=== PATIENT | male | born 1950 ===

== ENCOUNTER 2019-11-08 23:06 | Emergency (ER) | payer MEDICARE, MEDICAID ==
[~2019-11-08] VITALS: Ht 167.6 cm; Wt 68.2 kg
[2019-11-08] MEDS ORDERED: DOCU-275 PO (23:43)
[2019-11-08] MEDS ORDERED: BISA-151 PO (23:43)
[2019-11-08 23:57] LABS: EOSINOPHILS % (AUTO) 4.3 % (1.0-6.0); HEMATOCRIT 37.4 % (41-53); HEMOGLOBIN 12.1 g/dL (13.5-17.5); LYMPHOCYTES # (AUTO) 2.2 K/uL (1.0-4.8); LYMPHOCYTES % (AUTO) 26.7 % (22.0-44.0); MEAN CORPUSCULAR HEMOGLOBIN 27.4 pg (26.0-34.0); MEAN CORPUSCULAR HGB CONC 32.4 G/dL (31.0-37.0); MEAN CORPUSCULAR VOLUME 85 fL (80-100); MONOCYTES # (AUTO) 0.7 K/uL (0.1-1.0); MONOCYTES % (AUTO) 8.1 % (2.0-9.0); NEUTROPHILS % (AUTO) 59.9 % (40.0-70.0); PLATELET COUNT (AUTO) 333 K/uL (150-450); RED BLOOD CELL COUNT(AUTO) 4.42 MIL/uL (4.50-5.90); RED CELL DISTRIBUTION WIDTH 15.1 % (11.5-14.5)
[2019-11-09 00:12] LABS: ANION GAP 4 mmol/L (8-16); CALCIUM, TOTAL 8.7 mg/dL (8.8-10.5); CARBON DIOXIDE 31 mmol/L (22-29); CHLORIDE 99 mmol/L (98-107); CREATININE 0.92 mg/dL (0.60-1.30); GLUCOSE,RANDOM 152 mg/dL (70-110); POTASSIUM 3.6 mmol/L (3.5-5.1); SODIUM SERUM 134 mmol/L (136-145); UREA NITROGEN, BLOOD 16 mg/dL (7-18)
[2019-11-09 00:14] LABS: GLOMERULAR FILTR. RATE CALC > 60 mL/min (>60)
[2019-11-09 00:15] LABS: PROTHROMBIN TIME 10.2 SEC (9.4-11.6)
[2019-11-09 00:18] LABS: ALANINE AMINOTRANSFERASE 20 U/L (12-78); ALKALINE PHOSPHATASE 112 U/L (46-116); ASPARTATE AMINOTRANSFERASE 14 U/L (15-37); BILIRUBIN,TOTAL 0.3 mg/dL (0.1-1.0); TOTAL PROTEIN, SERUM 6.8 g/dL (6.4-8.2)
[2019-11-09] MEDS ORDERED: METO25 PO (00:19)
[2019-11-09] MEDS ORDERED: INSNOV SQ (00:19)
[2019-11-09] MEDS ORDERED: HYDR-4061 PO (00:19)
[2019-11-09] MEDS ORDERED: LISI-661 PO (00:19)
[2019-11-09 02:54] VITALS: BP 133/82
[2019-11-09 05:09] LABS: APPEARANCE,URINE CLOUDY (CLEAR); BILIRUBIN,URINE PRELIM. POSITIVE (NEGATIVE); GLUCOSE, URINE (UA) NEGATIVE (NEGATIVE); OCCULT BLOOD,URINE LARGE (NEGATIVE); PROTEIN,URINE SEE CONFIRM (NEGATIVE)
[2019-11-09 05:10] LABS: KETONES,URINE 15 mg/dL (NEGATIVE); LEUKOCYTE ESTERASE ,URINE LARGE (NEGATIVE); NITRATE,URINE NEGATIVE (NEGATIVE)
[2019-11-09 05:22] LABS: RBC,URINE Full Field /HPF (0-2)
[2019-11-09 05:24] LABS: BACTERIA,URINE Few /HPF (None Seen)
[2019-11-09 05:25] LABS: SQUAMOUS EPITHELIAL CELL,UR Rare /LPF (None Seen)
[2019-11-09 05:26] LABS: SULFOSALICYLIC ACID,URINE 3+ (Negative)
== END 2019-11-09 03:27 | disposition home or self-care (01) ==
LOC: EMS 23:09
DX: R33.9 Retention of urine, unspecified (principal); R31.9 Hematuria, unspecified; I13.0 Hypertensive heart and chronic kidney disease with heart failure and stage 1 through stage 4 chronic kidney disease, or unspecified chronic kidney disease; I50.9 Heart failure, unspecified; N17.9 Acute kidney failure, unspecified; Z79.01 Long term (current) use of anticoagulants
CPT/HCPCS: 51702; 87086